=== PATIENT | male | born 1995 | race African-American/Black ===

== ENCOUNTER 2022-03-12 13:10 | Emergency (ER) | payer SELFPAY ==
[~2022-03-12] VITALS: Ht 165.1 cm; Wt 80.0 kg
[2022-03-12] MEDS ORDERED: LEVETIRACETAM 500MG PREMIX 100 ML IV ONE ×2 (14:00→14:15)
[2022-03-12] MEDS ORDERED: MIDAZOLAM HCL 2 MG/2 ML VIAL IV ONE (14:30)
[2022-03-12] MEDS ORDERED: HALOPERIDOL LACTATE 5MG/ML VIAL IM ONE (15:45)
[2022-03-12 17:05] LABS: HEMATOCRIT. 44.4 % (42.0-52.0); HEMOGLOBIN. 14.4 g/dL (14.0-18.0); MEAN CORPUSCULAR HEMOGLOBIN 31.3 pg (28.0-32.0); MEAN CORPUSCULAR VOLUME 96.7 fL (80.0-94.0); MEAN PLATELET VOLUME 8.5 fl (7.4-10.4); PLATELET 163 x1000/uL (130-400); RED BLOOD CELL COUNT 4.59 mill/uL (4.7-6.1); RED CELL DISTRIBUTION WIDTH 12.6 % (11.6-14.6)
[2022-03-12 17:13] LABS: CHLORIDE 110 mEq/L (98-107)
[2022-03-12 17:22] LABS: VALPROIC ACID <3.0 ug/mL ug/mL (50-100)
[2022-03-12 17:34] LABS: PROTHROMBIN TIME 10.7 sec (9.6-11.0)
[2022-03-12 19:11] VITALS: BP 117/69
[2022-03-12 19:14] LABS: *AMPHETAMINES SCREEN URINE NEGATIVE (NEGATIVE); *BARBITURATES SCREEN URINE NEGATIVE (NEGATIVE); *BENZODIAZEPINES SCREEN URINE PRESUMTIVE POSITIVE (NEGATIVE); *COCAINE SCREEN URINE NEGATIVE (NEGATIVE); CANNABINOID URINE SCREEN PRESUMTIVE POSITIVE (NEGATIVE); METHADONE URINE SCREEN NEGATIVE (NEGATIVE); OPIATES URINE SCREEN NEGATIVE (NEGATIVE); PHENCYCLIDINE URINE SCREEN NEGATIVE (NEGATIVE)
[2022-03-12 20:50] LABS: PLATELET ESTIMATE NORMAL
== END 2022-03-12 19:38 | disposition home or self-care (01) ==
LOC: ER 13:10
DX: G40.909 Epilepsy, unspecified, not intractable, without status epilepticus (principal); I49.9 Cardiac arrhythmia, unspecified
CPT/HCPCS: 36415; 70450; 80053; 80165; 80305; 85025; 85610; 93005; 96365; 96372; 96375; 99285; J1630; J1953; J2250

== ENCOUNTER 2022-04-28 13:02 | Inpatient (IN) | payer MEDICAID, OTHER ==
[~2022-04-28] VITALS: Ht 160 cm; Wt 61.9 kg
[2022-04-28] MEDS ORDERED: LEVETIRACETAM 500MG PREMIX 100 ML IV ONE ×2 (13:30)
[2022-04-28 14:10] LABS: BASOPHILS % 0.3 % (0.0-2.0); EOSINOPHILS % 0.2 % (0.0-5.0); HEMATOCRIT. 50.9 % (42.0-52.0); HEMOGLOBIN. 15.6 g/dL (14.0-18.0); MEAN CORPUSCULAR VOLUME 104.6 fL (80.0-94.0); MEAN PLATELET VOLUME 9.8 fl (7.4-10.4); MONOCYTES % 6.2 % (2.0-8.0); NEUTROPHILS % 77.3 % (40.0-76.0); PLATELET 179 x1000/uL (130-400); RED BLOOD CELL COUNT 4.87 mill/uL (4.7-6.1); RED CELL DISTRIBUTION WIDTH 14.1 % (11.6-14.6)
[2022-04-28] MEDS ORDERED: MIDAZOLAM HCL 2 MG/2 ML VIAL IV ONE (15:15)
[2022-04-28 15:33] LABS: CHLORIDE 105 mEq/L (98-107)
[2022-04-28 15:48] LABS: ETHANOL BLOOD < 10 mg/dL; VALPROIC ACID <3.0 ug/mL ug/mL (50-100)
[2022-04-29 10:30] VITALS: BP 124/72
[2022-04-29 12:00] VITALS: BP 125/74
[2022-04-29] MEDS ORDERED: LORAZEPAM 0.5MG TABLET PO PRN (12:15)
[2022-04-29] MEDS ORDERED: ONDANSETRON HCL 4MG/2ML INJ IV PRN (12:15)
[2022-04-29] MEDS ORDERED: HYDROCODONE/ACETAMINOPHEN 5/325MG TABLET PO PRN (12:15)
[2022-04-29] MEDS ORDERED: IPRATROPIUM/ALBUTEROL 0.5-3(2.5)MG/3ML NEB HHN PRN (12:15)
[2022-04-29] MEDS ORDERED: DOCUSATE SODIUM 100MG CAPSULE PO PRN (12:15)
[2022-04-29] MEDS ORDERED: ACETAMINOPHEN 325MG TABLET PO PRN (12:15)
[2022-04-29] MEDS ORDERED: MIDAZOLAM HCL 2 MG/2 ML VIAL IV PRN (12:15)
[2022-04-29] MEDS ORDERED: CLONIDINE 0.1MG TABLET PO PRN (12:15)
[2022-04-29] MEDS ORDERED: NALOXONE HCL 0.4MG/ML VIAL IV PRN (12:30)
[2022-04-29] MEDS ORDERED: TOPI50TA24 MT (14:14)
[2022-04-29] MEDS ORDERED: KEPP500 MT (14:14)
[2022-04-29] MEDS ORDERED: [UNRECOGNIZED DRUG - CODE] MC (14:14)
[2022-04-29 16:00] VITALS: BP 134/76
[2022-04-29] MEDS: ACETAMINOPHEN 325MG TABLET PO PRN ×2 (20:25→21:25)
[2022-04-29 22:05] LABS: CREATINE KINASE 521 IU/L (39-308)
[2022-04-30] VITALS (7 sets, daily range): BP systolic 103–144; BP diastolic 46–87
[2022-04-30 07:10] LABS: CHLORIDE 106 mEq/L (98-107)
[2022-04-30 07:39] LABS: BASOPHILS % 0.5 % (0.0-2.0); EOSINOPHILS % 0.4 % (0.0-5.0); HEMATOCRIT. 42.2 % (42.0-52.0); LYMPHOCYTES % 29.8 % (20.0-50.0); MEAN CORPUSCULAR VOLUME 96.7 fL (80.0-94.0); MEAN PLATELET VOLUME 9.7 fl (7.4-10.4); MONOCYTES % 7.9 % (2.0-8.0); NEUTROPHILS % 61.4 % (40.0-76.0); PLATELET 169 x1000/uL (130-400); RED BLOOD CELL COUNT 4.37 mill/uL (4.7-6.1); RED CELL DISTRIBUTION WIDTH 12.8 % (11.6-14.6)
[2022-04-30] MEDS ORDERED: DIVA500T3 MT (15:22)
[2022-04-30] MEDS ORDERED: LEVE750T4 MT (15:22)
[2022-04-30] MEDS ORDERED: LEVETIRACETAM 750 MG in SODIUM CHLORIDE 0.9% 100 ML IV SCH (16:00)
[2022-04-30] MEDS ORDERED: DIVALPROEX SODIUM 500MG DR TABLET PO SCH (21:00)
== END 2022-04-30 17:58 | disposition home or self-care (01) | DRG 53 ==
LOC: ER 13:20 → MICUSO 20:01 → 7WST 04-29 10:18
PROVIDERS: ADMIT Internal Medicine; ATTEND Internal Medicine
DX: G40.909 Epilepsy, unspecified, not intractable, without status epilepticus (principal); R65.10 Systemic inflammatory response syndrome (SIRS) of non-infectious origin without acute organ dysfunction; D72.829 Elevated white blood cell count, unspecified; E16.2 Hypoglycemia, unspecified; Z79.899 Other long term (current) drug therapy
CPT/HCPCS: 36415; 70551; 71045; 80048; 80053; 80165; 80185; 80320; 82550; 82962; 83735; 84100; 84443; 85025; 93005; 99291; J1953; J2250; J7050; G0480

== ENCOUNTER 2022-06-12 15:15 | Inpatient (IN) | payer OTHER ==
[~2022-06-12] VITALS: Ht 172.7 cm; Wt 74.8 kg
[~2022-06-12 15:15] MED LIST: DIVA500T3 MT; LEVE750T4 MT; TOPI50TA24 MT
[2022-06-12] MEDS ORDERED: SODIUM CHLORIDE 0.9% 1,000 ML IV ONE (15:45)
[2022-06-12] MEDS ORDERED: LEVETIRACETAM 500MG PREMIX 100 ML IV ONE (15:45)
[2022-06-12 16:04] LABS: BASOPHILS % 0.3 % (0.0-2.0); EOSINOPHILS % 0.1 % (0.0-5.0); HEMATOCRIT. 48.2 % (42.0-52.0); HEMOGLOBIN. 15.7 g/dL (14.0-18.0); LYMPHOCYTES % 10.6 % (20.0-50.0); MEAN CORPUSCULAR HEMOGLOBIN 32.7 pg (28.0-32.0); MEAN CORPUSCULAR VOLUME 100.6 fL (80.0-94.0); MEAN PLATELET VOLUME 9.6 fl (7.4-10.4); MONOCYTES % 7.2 % (2.0-8.0); NEUTROPHILS % 81.8 % (40.0-76.0); PLATELET 181 x1000/uL (130-400); RED CELL DISTRIBUTION WIDTH 13.6 % (11.6-14.6)
[2022-06-12 16:37] LABS: CHLORIDE 104 mEq/L (98-107); ETHANOL BLOOD < 10 mg/dL
[2022-06-12] MEDS ORDERED: VALPROIC ACID 250MG CAPSULE PO ONE (20:00)
[2022-06-12 23:53] LABS: *AMPHETAMINES SCREEN URINE NEGATIVE (NEGATIVE); *BARBITURATES SCREEN URINE NEGATIVE (NEGATIVE); *BENZODIAZEPINES SCREEN URINE PRESUMTIVE POSITIVE (NEGATIVE); *COCAINE SCREEN URINE NEGATIVE (NEGATIVE); CANNABINOID URINE SCREEN PRESUMTIVE POSITIVE (NEGATIVE); METHADONE URINE SCREEN NEGATIVE (NEGATIVE); OPIATES URINE SCREEN NEGATIVE (NEGATIVE); PHENCYCLIDINE URINE SCREEN NEGATIVE (NEGATIVE)
[2022-06-13 05:37] VITALS: BP 116/62
[2022-06-13 08:00] VITALS: BP 121/68
[2022-06-13] MEDS ORDERED: CLONIDINE 0.1MG TABLET PO PRN (10:00)
[2022-06-13] MEDS ORDERED: DIPHENHYDRAMINE 50MG/ML VIAL IV PRN (10:00)
[2022-06-13] MEDS ORDERED: ACETAMINOPHEN 325MG TABLET PO PRN (10:00)
[2022-06-13] MEDS ORDERED: ONDANSETRON HCL 4MG/2ML INJ IV PRN (10:00)
[2022-06-13] MEDS ORDERED: LORAZEPAM 2MG/ML CPJ IV PRN (10:00)
[2022-06-13] MEDS ORDERED: LEVETIRACETAM 500 MG in SODIUM CHLORIDE 0.9% 100 ML IV SCH (10:00)
[2022-06-13] MEDS ORDERED: IPRATROPIUM/ALBUTEROL 0.5-3(2.5)MG/3ML NEB HHN PRN (10:00)
[2022-06-13 12:00] VITALS: BP 117/65
[2022-06-13] MEDS: LEVETIRACETAM 500MG PREMIX 100 ML IV SCH ×2 (12:59→21:19)
[2022-06-13 16:00] VITALS: BP 121/59
[2022-06-13 20:00] VITALS: BP 110/80
[2022-06-14] VITALS: BP 112/65
[2022-06-14 03:38] VITALS: BP 120/60
[2022-06-14] MEDS: VALPROIC ACID 250MG CAPSULE PO SCH ×3 (06:31→22:21)
[2022-06-14 07:33] LABS: BASOPHILS % 0.6 % (0.0-2.0); EOSINOPHILS % 0.9 % (0.0-5.0); HEMOGLOBIN. 14.2 g/dL (14.0-18.0); LYMPHOCYTES % 34.3 % (20.0-50.0); MEAN CORPUSCULAR VOLUME 97.6 fL (80.0-94.0); MEAN PLATELET VOLUME 9.7 fl (7.4-10.4); MONOCYTES % 7.9 % (2.0-8.0); NEUTROPHILS % 56.3 % (40.0-76.0); PLATELET 159 x1000/uL (130-400); RED CELL DISTRIBUTION WIDTH 13.2 % (11.6-14.6)
[2022-06-14 08:00] VITALS: BP 122/65
[2022-06-14 09:34] LABS: CHLORIDE 110 mEq/L (98-107)
[2022-06-14 12:00] VITALS: BP 105/52
[2022-06-14] MEDS: LEVETIRACETAM 500MG TABLET PO SCH ×2 (13:05→21:10)
[2022-06-14 16:00] VITALS: BP 117/68
[2022-06-14] MEDS ORDERED: *PATIENT'S OWN MEDICATION STORAGE XX SCH (16:15)
[2022-06-14 20:00] VITALS: BP 122/64
[2022-06-15] VITALS: BP 104/62
[2022-06-15 04:00] VITALS: BP 114/68
[2022-06-15] MEDS: VALPROIC ACID 250MG CAPSULE PO SCH ×2 (05:16→14:17)
[2022-06-15 07:58] LABS: BASOPHILS % 0.8 % (0.0-2.0); HEMATOCRIT. 47.9 % (42.0-52.0); HEMOGLOBIN. 15.9 g/dL (14.0-18.0); LYMPHOCYTES % 37.3 % (20.0-50.0); MEAN CORPUSCULAR HEMOGLOBIN 32.3 pg (28.0-32.0); MEAN CORPUSCULAR VOLUME 97.3 fL (80.0-94.0); MEAN PLATELET VOLUME 9.4 fl (7.4-10.4); NEUTROPHILS % 53.9 % (40.0-76.0); PLATELET 156 x1000/uL (130-400); RED BLOOD CELL COUNT 4.92 mill/uL (4.7-6.1); RED CELL DISTRIBUTION WIDTH 13.2 % (11.6-14.6)
[2022-06-15 08:21] LABS: CHLORIDE 105 mEq/L (98-107)
[2022-06-15 09:14] VITALS: BP 124/73
[2022-06-15] MEDS: LEVETIRACETAM 500MG TABLET PO SCH (09:19)
[2022-06-15 12:00] VITALS: BP 109/74
[2022-06-15] MEDS ORDERED: VALP250C3 PO (14:06)
[2022-06-15] MEDS ORDERED: KEPP500 PO (14:06)
[2022-06-15 16:00] VITALS: BP 127/77
[2022-06-15 18:23] VITALS: BP 127/77
== END 2022-06-15 19:55 | disposition home or self-care (01) | DRG 53 ==
LOC: ER 15:15 → 8WST 06-13 05:51 → ER 06-13 05:51 → CANRESERV 06-13 05:56 → ENRESERV 06-13 05:56 → CANBEDREQ 06-13 07:06 → 8WST 06-13 08:50
PROVIDERS: ADMIT Internal Medicine; ATTEND Internal Medicine
PROC: 4A00X4Z Measurement of Central Nervous Electrical Activity, External Approach (ICD-10-PCS; principal; 2022-06-14)
DX: G40.409 Other generalized epilepsy and epileptic syndromes, not intractable, without status epilepticus (principal); D72.829 Elevated white blood cell count, unspecified; Z20.822 Contact with and (suspected) exposure to COVID-19; Z79.899 Other long term (current) drug therapy; E16.2 Hypoglycemia, unspecified
CPT/HCPCS: 36415; 70551; 71045; 80048; 80053; 80076; 80165; 80305; 80320; 82533; 82962; 85025; 87426; 93005; 93970; 95816; 99285; C1893; C9803; J1953; J7030; G0480

== ENCOUNTER 2022-07-17 22:53 | Emergency (ER) | payer OTHER ==
[~2022-07-17] VITALS: Ht 182.9 cm; Wt 73.0 kg
[~2022-07-17 22:53] MED LIST changes: -DIVA500T3 MT; +KEPP500 PO; -LEVE750T4 MT; +VALP250C3 PO
[2022-07-17] MEDS ORDERED: LEVETIRACETAM 1000MG PREMIX 100 ML IV ONE (23:15)
[2022-07-18 00:22] LABS: CLARITY URINE TURBID (CLEAR); COLOR URINE YELLOW (YELLOW)
[2022-07-18 00:23] LABS: PROTEIN URINE 3+ (NEGATIVE)
[2022-07-18 00:24] LABS: KETONES URINE 4+ (NEGATIVE)
[2022-07-18 00:25] LABS: LEUKOCYTE ESTERASE URINE NEGATIVE (NEGATIVE); NITRITE URINE NEGATIVE (NEGATIVE); OCCULT BLOOD URINE 3+ (NEGATIVE); UROBILINOGEN URINE 0.2 E.U./dL (0.2-1.0)
[2022-07-18 00:28] LABS: *AMPHETAMINES SCREEN URINE NEGATIVE (NEGATIVE); *BARBITURATES SCREEN URINE NEGATIVE (NEGATIVE); *BENZODIAZEPINES SCREEN URINE NEGATIVE (NEGATIVE); *COCAINE SCREEN URINE NEGATIVE (NEGATIVE); CANNABINOID URINE SCREEN PRESUMTIVE POSITIVE (NEGATIVE); METHADONE URINE SCREEN NEGATIVE (NEGATIVE); OPIATES URINE SCREEN NEGATIVE (NEGATIVE); PHENCYCLIDINE URINE SCREEN NEGATIVE (NEGATIVE)
[2022-07-18 00:49] LABS: BASOPHILS % 0.1 % (0.0-2.0); EOSINOPHILS % 0.1 % (0.0-5.0); HEMATOCRIT. 44.8 % (42.0-52.0); HEMOGLOBIN. 14.7 g/dL (14.0-18.0); LYMPHOCYTES % 8.7 % (20.0-50.0); MEAN CORPUSCULAR HEMOGLOBIN 32.2 pg (28.0-32.0); MEAN CORPUSCULAR VOLUME 98.2 fL (80.0-94.0); MEAN PLATELET VOLUME 9.4 fl (7.4-10.4); MONOCYTES % 6.1 % (2.0-8.0); PLATELET 149 x1000/uL (130-400); RED BLOOD CELL COUNT 4.56 mill/uL (4.7-6.1); RED CELL DISTRIBUTION WIDTH 13.1 % (11.6-14.6)
[2022-07-18 00:54] LABS: CHLORIDE 106 mEq/L (98-107)
[2022-07-18] MEDS ORDERED: SODIUM CHLORIDE 0.9% 1,000 ML IV ONE (01:00)
[2022-07-18 01:03] LABS: CREATINE KINASE 373 IU/L (39-308); ETHANOL BLOOD < 10 mg/dL
[2022-07-18] MEDS ORDERED: ONDANSETRON HCL 4MG/2ML INJ IV ONE (01:45)
[2022-07-18 06:29] VITALS: BP 131/71
== END 2022-07-18 06:58 | disposition short-term general hospital (02) ==
LOC: ER 22:53 → CANBEDREQ 07-18 14:10
DX: G40.909 Epilepsy, unspecified, not intractable, without status epilepticus (principal); S00.83XA Contusion of other part of head, initial encounter; Z20.822 Contact with and (suspected) exposure to COVID-19; D72.829 Elevated white blood cell count, unspecified; F12.90 Cannabis use, unspecified, uncomplicated; X58.XXXA Exposure to other specified factors, initial encounter; Y93.89 Activity, other specified; Y92.89 Other specified places as the place of occurrence of the external cause
CPT/HCPCS: 36415; 70450; 80053; 80305; 80320; 81003; 82550; 85025; 87426; 96361; 96365; 96375; 99285; C9803; J1953; J2405; J7030; G0480

== ENCOUNTER 2022-08-14 13:57 | Inpatient (IN) | payer OTHER ==
[~2022-08-14] VITALS: Ht 162.6 cm; Wt 57.8 kg
[2022-08-14 17:04] LABS: HEMATOCRIT. 42.6 % (42.0-52.0); HEMOGLOBIN. 14.2 g/dL (14.0-18.0); MEAN CORPUSCULAR HEMOGLOBIN 32.3 pg (28.0-32.0); MEAN CORPUSCULAR VOLUME 96.9 fL (80.0-94.0); MEAN PLATELET VOLUME 9.6 fl (7.4-10.4); PLATELET 170 x1000/uL (130-400); RED CELL DISTRIBUTION WIDTH 13.2 % (11.6-14.6)
[2022-08-14 17:33] LABS: PLATELET ESTIMATE NORMAL
[2022-08-14] MEDS ORDERED: LORAZEPAM 2MG/ML CPJ IV ONE (17:45)
[2022-08-14] MEDS ORDERED: LEVETIRACETAM 500MG PREMIX 100 ML IV ONE (17:45)
[2022-08-14 21:12] LABS: CHLORIDE 111 mEq/L (98-107)
[2022-08-14 22:11] LABS: ETHANOL BLOOD < 10 mg/dL
[2022-08-14 23:23] LABS: CHLORIDE 114 mEq/L (98-107)
[2022-08-15] MEDS ORDERED: LORAZEPAM 2MG/ML CPJ IV PRN ×2 (08:15→20:15)
[2022-08-15] MEDS ORDERED: ACETAMINOPHEN 325MG TABLET PO PRN (10:45)
[2022-08-15] MEDS ORDERED: ONDANSETRON HCL 4MG/2ML INJ IV PRN (10:45)
[2022-08-15] MEDS: LEVETIRACETAM 500MG TABLET PO SCH ×2 (11:37→21:54)
[2022-08-15 14:00] VITALS: BP 109/69
[2022-08-15 16:00] VITALS: BP 102/65
[2022-08-15] MEDS: TOPIRAMATE 25MG TABLET PO SCH (16:36)
[2022-08-15] MEDS ORDERED: INFLUENZA VACCINE 05/PF 0.5 ML SYRINGE IM ONE (18:15)
[2022-08-15 20:00] VITALS: BP 117/71
[2022-08-15] MEDS ORDERED: THIAMINE HCL 100 MG/1 ML 2ML VIAL IM SCH (21:00)
[2022-08-15] MEDS ORDERED: VALPROATE SODIUM 1,000 MG in SODIUM CHLORIDE 0.9% 100 ML IV NR (21:30)
[2022-08-15] MEDS ORDERED: VALPROIC ACID 250MG CAPSULE PO SCH (22:00)
[2022-08-15] MEDS: VALPROIC ACID 250MG CAPSULE PO SCH (22:09)
[2022-08-16] VITALS: BP 105/67
[2022-08-16 04:00] VITALS: BP 113/68
[2022-08-16] MEDS: VALPROIC ACID 250MG CAPSULE PO SCH ×2 (06:23→14:12)
[2022-08-16 08:00] VITALS: BP 115/74
[2022-08-16] MEDS: TOPIRAMATE 25MG TABLET PO SCH (08:51)
[2022-08-16] MEDS: LEVETIRACETAM 500MG TABLET PO SCH (08:51)
[2022-08-16 12:00] VITALS: BP 111/72
[2022-08-16 14:01] VITALS: BP 111/72
== END 2022-08-16 16:00 | disposition home or self-care (01) | DRG 53 ==
LOC: ER 15:44 → MICUSO 20:26 → EDBEDREQ 20:30 → 8WST 08-15 14:21
PROVIDERS: ADMIT Internal Medicine; ATTEND Internal Medicine
DX: G40.901 Epilepsy, unspecified, not intractable, with status epilepticus (principal); R65.11 Systemic inflammatory response syndrome (SIRS) of non-infectious origin with acute organ dysfunction; J96.00 Acute respiratory failure, unspecified whether with hypoxia or hypercapnia; E16.2 Hypoglycemia, unspecified; R41.89 Other symptoms and signs involving cognitive functions and awareness; Z20.822 Contact with and (suspected) exposure to COVID-19; Z79.899 Other long term (current) drug therapy; Z91.199 Patient's noncompliance with other medical treatment and regimen due to unspecified reason
CPT/HCPCS: 36415; 80048; 80053; 80165; 80320; 82962; 83036; 84443; 85025; 87426; 90686; 93005; 99285; J1953; J2060; J3411; J3490; J7050; G0480

== ENCOUNTER 2022-09-11 09:41 | Emergency (ER) | payer OTHER ==
[~2022-09-11] VITALS: Ht 172.7 cm; Wt 65.0 kg
[2022-09-11] MEDS ORDERED: LEVETIRACETAM 1000MG PREMIX 100 ML IV ONE (09:45)
[2022-09-11] MEDS ORDERED: LORAZEPAM 2MG/ML CPJ IV ONE (10:00)
[2022-09-11 12:10] LABS: BASOPHILS % 0.3 % (0.0-2.0); HEMOGLOBIN. 13.2 g/dL (14.0-18.0); LYMPHOCYTES % 7.4 % (20.0-50.0); MEAN CORPUSCULAR HEMOGLOBIN 32.6 pg (28.0-32.0); MEAN CORPUSCULAR VOLUME 98.6 fL (80.0-94.0); MEAN PLATELET VOLUME 9.4 fl (7.4-10.4); MONOCYTES % 6.1 % (2.0-8.0); NEUTROPHILS % 86.2 % (40.0-76.0); PLATELET 158 x1000/uL (130-400); RED BLOOD CELL COUNT 4.06 mill/uL (4.7-6.1); RED CELL DISTRIBUTION WIDTH 13.7 % (11.6-14.6)
[2022-09-11 12:16] LABS: CHLORIDE 111 mEq/L (98-107)
[2022-09-11 12:24] LABS: ETHANOL BLOOD < 10 mg/dL
[2022-09-11 18:30] VITALS: BP 116/70
[2022-09-11] MEDS ORDERED: KEPP500 MT (19:05)
== END 2022-09-11 21:01 | disposition home or self-care (01) ==
LOC: ER 09:41
DX: G40.909 Epilepsy, unspecified, not intractable, without status epilepticus (principal); Z91.14 Patient's other noncompliance with medication regimen
CPT/HCPCS: 36415; 80053; 80320; 85025; 96365; 96375; 99284; J1953; J2060; G0480

== ENCOUNTER 2022-11-25 16:49 | Inpatient (IN) | payer OTHER ==
[~2022-11-25] VITALS: Ht 177.8 cm; Wt 68.0 kg
[~2022-11-25 16:49] MED LIST changes: +KEPP500 MT; +TOPI-255 MT; -TOPI50TA24 MT
[2022-11-25] MEDS ORDERED: LORAZEPAM 2MG/ML CPJ IV PRN (17:00)
[2022-11-25] MEDS ORDERED: LEVETIRACETAM 1000MG PREMIX 100 ML IV ONE (17:00)
[2022-11-25] MEDS ORDERED: SODIUM CHLORIDE 0.9% 1,000 ML IV ONE (17:00)
[2022-11-25 17:24] LABS: BASOPHILS % 0.6 % (0.0-2.0); EOSINOPHILS % 0.2 % (0.0-5.0); HEMATOCRIT. 41.4 % (42.0-52.0); HEMOGLOBIN. 13.7 g/dL (14.0-18.0); LYMPHOCYTES % 15.1 % (20.0-50.0); MEAN CORPUSCULAR HEMOGLOBIN 31.8 pg (28.0-32.0); MEAN CORPUSCULAR VOLUME 96.3 fL (80.0-94.0); MEAN PLATELET VOLUME 8.9 fl (7.4-10.4); MONOCYTES % 6.9 % (2.0-8.0); NEUTROPHILS % 77.2 % (40.0-76.0); PLATELET 162 x1000/uL (130-400); RED CELL DISTRIBUTION WIDTH 12.7 % (11.6-14.6)
[2022-11-25 17:29] LABS: CHLORIDE 109 mEq/L (98-107)
[2022-11-25 18:04] LABS: ETHANOL BLOOD < 10 mg/dL
[2022-11-26 03:00] VITALS: BP 122/63
[2022-11-26 04:00] VITALS: BP 122/63
[2022-11-26] MEDS ORDERED: LORAZEPAM 2MG/ML CPJ IV PRN (04:00)
[2022-11-26] MEDS ORDERED: ACETAMINOPHEN 325MG TABLET PO PRN (04:00)
[2022-11-26] MEDS ORDERED: INFLUENZA VACCINE 05/PF 0.5 ML SYRINGE IM ONE (06:00)
[2022-11-26 08:00] VITALS: BP 85/46
[2022-11-26] MEDS: LEVETIRACETAM 500MG TABLET PO SCH ×2 (08:39→17:33)
[2022-11-26] MEDS: DIVALPROEX SODIUM 500MG DR TABLET PO SCH ×2 (08:40→17:33)
[2022-11-26 12:00] VITALS: BP 129/71
[2022-11-26 14:42] LABS: HEPATITIS B SURFACE ANTIGEN NEGATIVE
[2022-11-26 16:00] VITALS: BP 135/71
[2022-11-26 18:50] LABS: CLARITY URINE CLEAR (CLEAR); COLOR URINE DARK YELLOW (YELLOW); KETONES URINE 2+ (NEGATIVE); LEUKOCYTE ESTERASE URINE 1+ (NEGATIVE); NITRITE URINE NEGATIVE (NEGATIVE); OCCULT BLOOD URINE NEGATIVE (NEGATIVE); PROTEIN URINE TRACE (NEGATIVE); SPECIFIC GRAVITY URINE 1.037 (1.005-1.030)
[2022-11-26 19:00] LABS: *AMPHETAMINES SCREEN URINE NEGATIVE (NEGATIVE); *BARBITURATES SCREEN URINE NEGATIVE (NEGATIVE); *BENZODIAZEPINES SCREEN URINE NEGATIVE (NEGATIVE); *COCAINE SCREEN URINE NEGATIVE (NEGATIVE); CANNABINOID URINE SCREEN PRESUMTIVE POSITIVE (NEGATIVE); METHADONE URINE SCREEN NEGATIVE (NEGATIVE); OPIATES URINE SCREEN NEGATIVE (NEGATIVE); PHENCYCLIDINE URINE SCREEN NEGATIVE (NEGATIVE)
[2022-11-26 20:00] VITALS: BP 121/60
[2022-11-27] VITALS: BP 120/65
[2022-11-27 04:00] VITALS: BP 118/70
[2022-11-27 08:00] VITALS: BP 113/67
[2022-11-27] MEDS: LEVETIRACETAM 500MG TABLET PO SCH (08:58)
[2022-11-27] MEDS ORDERED: TOPIRAMATE 25MG TABLET PO SCH (09:00)
[2022-11-27] MEDS ORDERED: DIVALPROEX SODIUM 250MG DR TABLET PO SCH (09:00)
[2022-11-27] MEDS ORDERED: DIVA250T4 PO (11:43)
[2022-11-27 12:00] VITALS: BP 123/76
[2022-11-27 13:14] VITALS: BP 125/75
[2022-11-27 16:00] VITALS: BP 126/71
[2022-11-29 13:07] LABS: TOPIRAMATE <1.5 ug/mL (2.0-25.0)
== END 2022-11-27 16:30 | disposition home or self-care (01) | DRG 53 ==
LOC: ER 16:49 → MICUSO 22:17 → EDBEDREQTM 22:32 → EDBEDREQ 22:32 → 6EST 11-26 03:09
PROVIDERS: ADMIT Internal Medicine; ATTEND Internal Medicine
DX: G40.909 Epilepsy, unspecified, not intractable, without status epilepticus (principal); F12.90 Cannabis use, unspecified, uncomplicated; Z20.822 Contact with and (suspected) exposure to COVID-19; Z79.899 Other long term (current) drug therapy
CPT/HCPCS: 36415; 80053; 80165; 80185; 80201; 80305; 80320; 81003; 82542; 85025; 86803; 87340; 87426; 90686; 99285; C1893; J1953; J2060; J7030; G0480